=== PATIENT | male | born 1935 | race Caucasian/White ===

== ENCOUNTER 2017-10-22 19:30 | Outpatient (CLI) | payer MEDICARE | END 2017-10-22 19:31 | disposition home or self-care (01) | LOC: SLEEPLAB 19:30 | PROVIDERS: ATTEND Family Medicine | DX: G47.33 Obstructive sleep apnea (adult) (pediatric) (principal); I10 Essential (primary) hypertension; R06.83 Snoring; I25.10 Atherosclerotic heart disease of native coronary artery without angina pectoris; E11.9 Type 2 diabetes mellitus without complications | CPT/HCPCS: 95810 ==

== ENCOUNTER 2017-12-20 09:28 | Outpatient (CLI) | payer MEDICARE ==
--- NOTE | 2017-12-20 12:17 | MRI ---
MRI RIGHT SHOULDER WITHOUT CONTRAST: Date: 12/20/17 HISTORY: M25.511. Rotator cuff tear. Chronic pain. COMPARISON: None. FINDINGS: Biceps Tendon: Moderate extraarticular biceps tenosynovitis. Extensive intraarticular tendinosis, as well as interst itial delamination tearing. Glenoid Labrum: Posterior superior labral tear is present. There is also abnormal signal throughout the superior labr um indicating chronic tearing. No normal superior labral tissue is appreciated. Rotator Cuff: There is a full thickness rupture of the anterior 15 mm supraspinatus tendon from the footplate with fibers retracted to the medial humeral head. There is some scar in situ. There is extensive interstit ial tearing and undersurface fraying of the posterior fibers of the supraspinatus tendon. Mild tendin osis infraspinatus tendon. Extensive deep fiber tendinosis and partial tearing of the subscapularis. Soft Tissues: Moderate subacromial/subdeltoid bursal effusion. There is abnormal loss of normal subcoracoid fat. Th ere is extensive fibrosis at the rotator interval. Thickening of the axillary pouch and inferior glenohumeral ligament. Muscles: No significant atrophy. Bones: Mild degenerative disease at the acromioclavicular joint. IMPRESSION: 1. Full thickness tear of the anterior 1/2 of the supraspinatus tendon from the footplate retracted to medial humeral head. No significant muscle atrophy. The torn fibers are severely tendinotic and fr ayed. 2. Extensive interstitial tearing and undersurface fraying of the infraspinatus tendon, as well as o f the remaining fibers of the supraspinatus tendon. 3. Maceration of the superior labrum with no normal superior labral fibers remaining. 4. Loss of normal subcoracoid fat, as well as edema at the rotator interval, and thickening of axill lynn pouch and inferior glenohumeral ligament can be seen with capsulitis in the correct clinical sett ing. 5. Moderate tenosynovial fluid within the biceps tendon sheath. 6. Small bodies within the subscapularis bursa. POS: [facility]
== END 2017-12-20 09:29 | disposition home or self-care (01) ==
LOC: SCSMRI 09:28
PROVIDERS: ATTEND Orthopaedic Surgery Hand Surgery
DX: M75.101 Unspecified rotator cuff tear or rupture of right shoulder, not specified as traumatic (principal); M19.011 Primary osteoarthritis, right shoulder

== ENCOUNTER 2018-01-23 10:39 | Outpatient (CLI) | payer MEDICARE ==
[2018-01-23 12:47] LABS: %Lymphocytes 39.2 % (21.0-51.0); %Neutrophils 47.9 % (42.0-75.0); Mean Corpuscular HGB CONC 33.6 g/dL (32.0-36.0); Mean Corpuscular Hemoglobin 32.7 pg (27.0-31.0); Mean Corpuscular Volume 97.1 fL (78.0-98.0); Mean Platelet Volume 8.9 fL (7.4-10.4); Platelet Count 84 thou/uL (130-400); RBC Distribution Width 11.6 % (11.5-14.5); Red Blood Cell (RBC) Count 4.28 mill/uL (4.70-6.10); White Blood Cell (WBC) Count 4.8 thou/uL (4.8-10.8)
[2018-01-23 12:48] LABS: #Basophils 0.1 thou/uL (0.0-0.2); #Eosinphils 0.2 thou/uL (0.0-0.7); #Lymphocytes 1.9 thou/uL (1.20-3.40); #Monocytes 0.4 thou/uL (0.11-0.59); #Neutrophils 2.3 thou/uL (1.40-6.50); %Basophils 1.1 % (0.0-1.0); %Eosinophils 3.8 % (0.0-10.0); %Monocytes 7.9 % (0.0-10.0)
[2018-01-23 13:05] LABS: Anion Gap 8 mmol/L (10-20); BUN (Urea Nitrogen) 23 mg/dL (8.4-25.7); Calc. Creatinine Clearance 0 mL/min (70-130); Calcium 9.2 mg/dL (7.8-10.44); Carbon Dioxide 28 mmol/L (23-31); Chloride 107 mmol/L (98-107); Estimated GFR-MDRD 68; Glucose 79 mg/dL (83-110); Potassium 4.5 mmol/L (3.5-5.1); Sodium 138 mmol/L (136-145)
== END 2018-01-23 10:40 | disposition home or self-care (01) ==
LOC: LABBT 10:39
PROVIDERS: ATTEND Orthopaedic Surgery
DX: Z01.818 Encounter for other preprocedural examination (principal); M75.101 Unspecified rotator cuff tear or rupture of right shoulder, not specified as traumatic; M65.321 Trigger finger, right index finger
CPT/HCPCS: 80048; 85025

== ENCOUNTER 2018-01-24 05:50 | Day surgery (SDC) | payer MEDICARE ==
[2018-01-24] MEDS ORDERED: Fentanyl 100 MCG/2 ML VIAL ONE ×2 (06:20→06:59)
[2018-01-24] MEDS ORDERED: Bupivacaine HCl 0.25%/Epi 0.0005/PF 10 ML VIAL FS ONE (06:27)
[2018-01-24] MEDS ORDERED: CEFAZOLIN/Water 2 GM/20 ML SYRINGE ONE (06:42)
[2018-01-24] MEDS ORDERED: Midazolam HCl 2 mg/2 ml Vial ONE (06:59)
[2018-01-24] MEDS ORDERED: Ketorolac Tromethamine 30 MG/ML VIAL IVP PRN (07:27)
[2018-01-24] MEDS ORDERED: Promethazine HCl 25 MG/ML VIAL IM PRN (07:27)
[2018-01-24] MEDS ORDERED: Ondansetron HCl/PF 4 MG/2 ML Vial IVP PRN (07:27)
[2018-01-24] MEDS ORDERED: traMADol HCl 50 MG TAB PO PRN ×2 (07:27)
[2018-01-24] MEDS ORDERED: Zolpidem Tartrate 5 MG TAB PO PRN (07:27)
[2018-01-24] MEDS ORDERED: Ropivacaine HCl/PF 1,100 MG in Sodium Chloride 0.9% 440 ML NERVE BLCK SCH (07:27)
[2018-01-24] MEDS ORDERED: Fentanyl 100 MCG/2 ML VIAL IV PRN (07:28)
[2018-01-24] MEDS ORDERED: HYDROcodone/Acetaminophen 7.5/325 mg Tablet PO PRN ×2 (07:30)
[2018-01-24] MEDS ORDERED: Bupivacaine/Epinephrine 0.25% 30 ML VIAL ONE (08:02)
--- NOTE | 2018-01-24 11:34 | OP ---
DATE OF PROCEDURE: 01/24/2018 PREOPERATIVE DIAGNOSES: 1. Right rotator cuff repair. 2. Right index finger trigger finger. POSTOPERATIVE DIAGNOSES: 1. Right rotator cuff tear. 2. Subacromial impingement. 3. Right index finger trigger finger. PROCEDURE PERFORMED: 1. Rotator cuff repair Double row transosseous equivalent. 2. Subacromial decompression. 3. Right index finger trigger finger release. STAFF: Daniel Aaron M.D. REAL ESTATE TEACHER: None. ANESTHESIA: Ugarte. The patient received general endotracheal intubation interscalene block. ESTIMATED BLOOD LOSS: 30 mL. TOURNIQUET TIME: 8 minutes at 200 mmHg for the trigger finger release. ANTIBIOTICS: Ancef 2 grams. IMPLANTS: Two 5/5 corkscrews, x2 4.75 SwiveLocks for transosseous equivalent. COMPLICATIONS: None. HISTORY OF PRESENT ILLNESS: Mr. Sidhu is a pleasant 82-year-old male who presented to me, referred by Dr. Juarez. 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 He has pain. The patient is diabetic. History of open heart surgery. The patient had pain that was 5/10 in the shoulder, pain with activities. The patient had a full thickness rotator cuff repair and had a trigger finger. I discussed with him the risks and benefits of right rotator cuff repair and trigger finger release and indicated procedures for his right shoulder and hand. I discussed the risks and benefits of surgery to include pain, scar, bleeding, infection, damage to vital structures, decreased range of motion or strength, continued pain despite surgical intervention, loss of life or limb. The patient understood these risks and benefits and elected to proceed. PROCEDURE IN DETAIL: Time out was performed designating the patient's right upper extremity as the operative site based on site, consents, markings. After completion of timeout, the patient's right upper extremity was prepped and draped in sterile fashion. He was placed in a beach chair position with his bony prominences well padded. The patient had a posterior working portal and anterior working portal placed, visualize intraarticularly within the shoulder, saw the full thickness defect. There was a grade 2 humeral defect that I noticed, but no full thickness glenoid defects. The biceps was a little degenerative, but otherwise looked good throughout its course. The subscap had a little leading edge tear. I saw the full thickness tear which was at the anterior footprint of the patient's supraspinatus. I cleaned up inside the joint, moved subacromially. Removed the bursa. There was a small hook after taking down the patient's leading edge of the CA therefore I smoothed that out, I did not take more than about 2-3 mm of bone. I smoothed out the bone, smoothed out the subacromial. I decompressed all the bursa and I debrided the rotator cuff, the footprint for the rotator cuff repair. I drilled holes, placed 2 anchors near the intraarticular margin, passed 8 sutures through. There was an intrasubstance tear within the rotator cuff tear also which I had to opacify to help to compress that together, passed 8 stitches through, sewed this together and placed 2 double row PushLocks to help with a double row transosseous equivalent. I then cut my sutures, I washed, closed with 3-0 nylon. I then moved to my hand, placed a forearm tourniquet on, left it up for 8 minutes. I came down through the skin bluntly, I dissected down to the patient's A1 bebo of the index finger and made sure the neurovascular bundle was out of the way. I used a knife to cut in place ensure that I could pull the tendon up through the wound, was able to move without any difficulty. I had my complete release. I then washed and closed the tendon with some two horizontal mattress sutures 4-0 nylon. I let the tourniquet down after 8 minutes. The patient will be admitted to home. He will be in a hand splint as well as a shoulder sling. Begin elbow, wrist, and hand motion. He will follow up with me in 2 weeks. DOUG
[2018-01-24] MEDS ORDERED: Ropivacaine 0.5% HCl/PF (150 MG/30 ML VIAL) ONE (11:56)
[2018-01-24] MEDS ORDERED: Ropivacaine 0.2% HCl/PF (40 MG/20 ML VIAL) ONE (11:56)
[2018-01-24] MEDS ORDERED: HYDROcodone/Acetaminophen 5/325 mg Tablet ONE (12:04)
[2018-01-24] MEDS ORDERED: PHENYLEPHRINE-NS 100 MCG/ML 10 ML SYRINGE ONE (12:51)
[2018-01-24] MEDS ORDERED: PROPOFOL 200 MG/20 ML VIAL ONE (12:51)
[2018-01-24] MEDS ORDERED: Glycopyrrolate 0.2 MG/ML 5 ML SYRINGE ONE (12:51)
[2018-01-24] MEDS ORDERED: Ondansetron HCl/PF 4 MG/2 ML Vial ONE (12:51)
[2018-01-24] MEDS ORDERED: Lidocaine 1% PF 5 ML VIAL ONE (12:51)
[2018-01-24] MEDS ORDERED: ePHEDrine/0.9% NaCl/PF SYRINGE 50 mg/10 ml ONE (12:51)
== END 2018-01-24 12:00 | disposition home or self-care (01) ==
LOC: SDC 05:50
PROVIDERS: ATTEND Orthopaedic Surgery
PROC: 0LN70ZZ Release Right Hand Tendon, Open Approach (ICD-10-PCS; principal; 2018-01-24)
PROC: 0LM14ZZ Reattachment of Right Shoulder Tendon, Percutaneous Endoscopic Approach (ICD-10-PCS; 2018-01-24)
PROC: 0RHJ44Z Insertion of Internal Fixation Device into Right Shoulder Joint, Percutaneous Endoscopic Approach (ICD-10-PCS; 2018-01-24)
PROC: 0RNJ4ZZ Release Right Shoulder Joint, Percutaneous Endoscopic Approach (ICD-10-PCS; 2018-01-24)
DX: M75.121 Complete rotator cuff tear or rupture of right shoulder, not specified as traumatic (principal); M75.41 Impingement syndrome of right shoulder; M65.321 Trigger finger, right index finger; M19.011 Primary osteoarthritis, right shoulder; E11.9 Type 2 diabetes mellitus without complications; I51.9 Heart disease, unspecified; Z87.891 Personal history of nicotine dependence; Z79.82 Long term (current) use of aspirin; Z79.84 Long term (current) use of oral hypoglycemic drugs; Z79.899 Other long term (current) drug therapy
CPT/HCPCS: 29826; 29827; 26055; C1713 ×2; J2001; J2250; J2405; J2704; J2795; J3010; J7050

== ENCOUNTER 2018-01-27 17:54 | Observation (INO) | payer MEDICARE ==
[2018-01-27] MEDS ORDERED: Benzocaine 20% Spray 60 ML CAN ONE (18:24)
[2018-01-27] MEDS ORDERED: Lidocaine 1% 20 ML MDV ONE (18:24)
[2018-01-27] MEDS ORDERED: Lidocaine 4% Topical Sol 50 ML BOT ONE (18:34)
[2018-01-27 19:31] LABS: PTT 26.2 SEC (22.9-36.1); Prothrombin Time 13.5 SEC (12.0-14.7)
[2018-01-27 19:38] LABS: #Lymphocytes 1.4 thou/uL (1.20-3.40); #Monocytes 0.9 thou/uL (0.11-0.59); #Neutrophils 8.1 thou/uL (1.40-6.50); %Basophils 0.4 % (0.0-1.0); %Eosinophils 0.4 % (0.0-10.0); %Lymphocytes 12.9 % (21.0-51.0); %Monocytes 8.7 % (0.0-10.0); %Neutrophils 77.5 % (42.0-75.0); Hemoglobin 13.7 g/dL (14.0-18.0); Large Platelets SLIGHT; MDiff Complete? YES; Mean Corpuscular HGB CONC 35.2 g/dL (32.0-36.0); Mean Corpuscular Volume 91.1 fL (78.0-98.0); Mean Platelet Volume 9.9 fL (7.4-10.4); PLT Morphology Comment Appears Decreased; Platelet Count 92 thou/uL (130-400); RBC Distribution Width 11.2 % (11.5-14.5); Red Blood Cell (RBC) Count 4.28 mill/uL (4.70-6.10); White Blood Cell (WBC) Count 10.4 thou/uL (4.8-10.8)
--- NOTE | 2018-01-27 19:39 | RAD ---
ABDOMINAL SERIES WITH UPRIGHT CHEST AND TWO VIEW ABDOMEN: 01/27/18 HISTORY: Vomiting. Abdominal pain. Upright chest shows linear atelectasis in the left mid lung. The heart size is upper normal with post op sternotomy change. No evidence of infiltrate, effusion, or pneumothorax. No evidence of free intraperitoneal air. Bowel gas pattern unremarkable. There is scattered stool and gas throughout the colon. IMPRESSION: Unremarkable bowel gas pattern. POS: [facility]
[2018-01-27 19:42] LABS: ALT (SGPT) 17 U/L (8-55); AST (SGOT) 29 U/L (5-34); Albumin 3.8 g/dL (3.4-4.8); Alkaline Phosphatase 95 U/L (40-150); Anion Gap 16 mmol/L (10-20); BUN (Urea Nitrogen) 12 mg/dL (8.4-25.7); Calc. Creatinine Clearance 0 mL/min (70-130); Carbon Dioxide 24 mmol/L (23-31); Chloride 98 mmol/L (98-107); Estimated GFR-MDRD 90; Globulin 3.2 g/dL (2.4-3.5); Glucose 153 mg/dL (83-110); Lipase 4 U/L (8-78); Potassium 3.8 mmol/L (3.5-5.1); Sodium 134 mmol/L (136-145)
[2018-01-27] MEDS ORDERED: Pantoprazole 40 MG VIAL ONE (19:51)
[2018-01-27] MEDS ORDERED: Ondansetron HCl/PF 4 MG/2 ML Vial ONE (19:51)
[2018-01-27] MEDS ORDERED: Ondansetron HCl/PF 4 MG/2 ML Vial SLOW IVP PRN (21:40)
[2018-01-27] MEDS ORDERED: Dextrose 50% Abboject 50 ML SYRINGE SLOW IVP PRN (22:32)
[2018-01-27] MEDS ORDERED: Dextrose 5% in Water 1,000 ML IV PRN (22:32)
[2018-01-27] MEDS ORDERED: Insulin Regular 300 UNITS/3 ML VIAL SC PRN (22:32)
[2018-01-27] MEDS ORDERED: Promethazine 25 MG TAB PO PRN (22:33)
[2018-01-27] MEDS ORDERED: Ondansetron ODT 4 MG TAB PO PRN (22:33)
[2018-01-27] MEDS ORDERED: Mag-Al 1200 mg/1200 mg/30 ML UDCUP PO PRN (22:33)
[2018-01-27] MEDS ORDERED: traMADol HCl 50 MG TAB PO PRN (22:33)
[2018-01-27] MEDS ORDERED: Fleet Enema 133 ML BOT PR PRN (22:33)
[2018-01-27] MEDS ORDERED: Magnesium Citrate 300 ML BOT PO SCH (22:45)
[2018-01-28] MEDS: Sodium Chloride 0.9% 1,000 ML IV SCH ×3 (00:07→15:29)
[2018-01-28 00:41] VITALS: BMI 28.8
[2018-01-28] MEDS ORDERED: chlorproMAZINE HCl 25 MG in Sodium Chloride 0.9% 50 ML IVPB PRN (02:06)
[2018-01-28] MEDS ORDERED: Lidocaine 2% Viscous Solution 20 ML, Aluminum & Magnesium Hydroxide 30 ML, Donnatal Eli... SSW SCH (03:00)
[2018-01-28 05:07] LABS: #Eosinphils 0.1 thou/uL (0.0-0.7); #Lymphocytes 1.2 thou/uL (1.20-3.40); #Monocytes 0.7 thou/uL (0.11-0.59); #Neutrophils 5.8 thou/uL (1.40-6.50); %Basophils 0.1 % (0.0-1.0); %Eosinophils 0.6 % (0.0-10.0); %Lymphocytes 15.7 % (21.0-51.0); %Monocytes 8.6 % (0.0-10.0); Hemoglobin 11.5 g/dL (14.0-18.0); Mean Corpuscular HGB CONC 34.5 g/dL (32.0-36.0); Mean Corpuscular Hemoglobin 33.9 pg (27.0-31.0); Mean Corpuscular Volume 98.4 fL (78.0-98.0); Mean Platelet Volume 9.2 fL (7.4-10.4); Platelet Count 81 thou/uL (130-400); RBC Distribution Width 11.5 % (11.5-14.5); White Blood Cell (WBC) Count 7.8 thou/uL (4.8-10.8)
[2018-01-28 05:27] LABS: ALT (SGPT) 13 U/L (8-55); AST (SGOT) 24 U/L (5-34); Albumin 2.9 g/dL (3.4-4.8); Alkaline Phosphatase 80 U/L (40-150); Anion Gap 13 mmol/L (10-20); BUN (Urea Nitrogen) 20 mg/dL (8.4-25.7); Bilirubin, Total 0.7 mg/dL (0.2-1.2); Calc. Creatinine Clearance 96 mL/min (70-130); Calcium 8.5 mg/dL (7.8-10.44); Carbon Dioxide 20 mmol/L (23-31); Chloride 102 mmol/L (98-107); Estimated GFR-MDRD Greater than 90; Globulin 2.4 g/dL (2.4-3.5); Glucose 221 mg/dL (83-110); Potassium 4.1 mmol/L (3.5-5.1); Protein, Total 5.3 g/dL (5.8-8.1); Sodium 131 mmol/L (136-145)
[2018-01-28] MEDS: Pantoprazole 40 MG VIAL IVP SCH (08:44)
[2018-01-28] MEDS: Metoprolol Tartrate 25 MG TAB PO SCH ×2 (08:45→20:07)
[2018-01-28] MEDS: Amlodipine 5 mg/Benazepril 20 mg CAP PO SCH (08:45)
[2018-01-28] MEDS: Atorvastatin Calcium 10 MG TAB PO SCH (08:45)
[2018-01-28] MEDS: Senokot S 8.6-50 MG TAB PO SCH ×2 (08:45→20:07)
[2018-01-28] MEDS ORDERED: Prevnar 13-Val Conj/PF 0.5 ML SYRINGE IM ONE (09:00)
[2018-01-28] MEDS ORDERED: LIRAGLUTIDE 18 UNIT SC SCH (09:00)
[2018-01-28] MEDS: Magnesium Citrate 300 ML BOT PO SCH ×2 (12:27→15:29)
[2018-01-28 14:08] LABS: #Eosinphils 0.1 thou/uL (0.0-0.7); #Lymphocytes 1.5 thou/uL (1.20-3.40); #Monocytes 0.7 thou/uL (0.11-0.59); #Neutrophils 4.9 thou/uL (1.40-6.50); %Basophils 0.2 % (0.0-1.0); %Eosinophils 1.8 % (0.0-10.0); %Lymphocytes 20.4 % (21.0-51.0); %Monocytes 9.4 % (0.0-10.0); %Neutrophils 68.2 % (42.0-75.0); Hemoglobin 12.6 g/dL (14.0-18.0); Mean Corpuscular HGB CONC 34.9 g/dL (32.0-36.0); Mean Corpuscular Hemoglobin 33.7 pg (27.0-31.0); Mean Corpuscular Volume 96.8 fL (78.0-98.0); Mean Platelet Volume 8.4 fL (7.4-10.4); Platelet Count 102 thou/uL (130-400); RBC Distribution Width 11.4 % (11.5-14.5); Red Blood Cell (RBC) Count 3.75 mill/uL (4.70-6.10); White Blood Cell (WBC) Count 7.1 thou/uL (4.8-10.8)
--- NOTE | 2018-01-28 18:18 | CON ---
DATE OF CONSULTATION: 01/25/2018 HISTORY OF PRESENT ILLNESS: The patient is an 82-year-old male, who recently underwent a r ight shoulder surgery. He was doing well until the day prior to admission when he developed some hic cups, and then had a large amount of coffee-ground emesis. He denies prior episodes of upper GI blee ding. He denies prior history of peptic ulcers. He does take Advil and ibuprofen maybe 6-8 tablets per week. He does use Tylenol as well. He denies any weight loss. He denies any abdominal pain. PAST MEDICAL HISTORY: Significant for diabetes mellitus, hyperlipidemia, hypertension, chronic back pain. PAST MEDICAL HISTORY: Herniorrhaphy, appendectomy, coronary artery bypass, multiple orthopedic surge stephen. ALLERGIES: No known allergies. MEDICATIONS: Medications on admission include aspirin 81 mg p.o. daily, atorvastatin 40 mg p.o. q.p. m., glimepiride 4 mg p.o. b.i.d., metoprolol 25 mg p.o. b.i.d., amlodipine and benazepril 5/20 one p. o. daily, Januvia 100 mg p.o. daily, Victoza Pen 3 mL every day, tamsulosin 0.4 mg p.o. daily, omepra zole 20 mg p.o. daily. SOCIAL HISTORY: He has a glass of wine with dinner. Does not smoke. FAMILY HISTORY: Negative for GI or liver disease. REVIEW OF SYSTEMS: Constitutional: No fever or chills. No weight loss. Eyes: No blurred vision o r double vision. ENT: No sore throat or earaches. Cardiovascular: No chest pain or palpitation. Pulmonary: No shortness of breath, cough, or wheeze. Gastrointestinal: See above. Genitourinary: No hematuria or dysuria. Musculoskeletal: No joint pain or muscle weakness. Skin: No rashes. Ne urologic: No numbness or seizure activity. PHYSICAL EXAMINATION: GENERAL: Shows an elderly white male in no acute distress. VITAL SIGNS: Temperature 98.6, pulse is 67, respiratory rate 18, blood pressure 152/68. HEENT: Unremarkable. NECK: Supple. CHEST: Clear. CARDIOVASCULAR: Regular rate and rhythm. ABDOMEN: Soft and nontender without organomegaly or masses. LABORATORY DATA: Shows admission hemoglobin of 13.7, repeat was 11.5; white blood cell count 7.8; pl atelet count of 81,000. PT is 13.5 with an INR of 1.0. Chemistries showed sodium 131, CO2 of 20, gl ucose 221, albumin 2.9. ASSESSMENT: 1. Coffee-ground emesis. 2. Recent right shoulder surgery - the patient takes chronic NSAIDs. 3. Anemia secondary to gastrointestinal blood loss. 4. Thrombocytopenia, may be consumption. 5. Diabetes mellitus. 6. Coronary artery disease. RECOMMENDATIONS: 1. EGD. 2. PPI. 3. Serial H&H.
--- NOTE | 2018-01-28 18:33 | HP ---
PRIMARY CARE PHYSICIAN: Dr. Emery Gage. CHIEF COMPLAINT: Intractable nausea and vomiting. HISTORY OF PRESENT ILLNESS: The patient underwent right rotator cuff surgery with simultaneous right hand trigger finger repair under Dr. Aaron. The patient was discharged from same day surgery on Tuesday. On evening, he presented to [facility] in [place] emergency room with urinary obstruction. Warren catheter was placed and the patient was restarted on tamsulosin for his history of benign prostatic hyperplasia. He had stopped his tamsulosin some time ago and was able to successfully Warren catheterization following initiation of tamsulosin; however, following that prehospital evaluation, the patient started having intractable nausea and vomiting, not had a bowel movement and since the surgery in almost a week, started having abdomen pain, most predominantly a suprapubic; however, no fevers or chills reported. No incision site drainage, redness or warmth reported to shoulder and hand. The patient states his blood sugars have been controlled regarding his diabetes; however, more concerning per emergency room report is positive coffee ground emesis. It was an occult blood negative however. When speaking with the patient, he did have a decent quantity of Pepto-Bismol for his indigestion symptoms prior to presenting to the emergency department having coffee ground emesis. REVIEW OF SYSTEMS: No fevers, no chills. Positive fatigue. Positive for joint pain. No joint swelling, no incision line exudates. No cough, no congestion. No chest pain, no palpitation, no shortness of breath. Positive abdomen pain, predominantly suprapubic. Positive urinary retention symptoms. No dysuria, no hematuria reported. Positive nausea and vomiting including coffee ground emesis. Lower extremities without cyanosis or edema reported. No polydipsia, polyuria reported. PAST MEDICAL HISTORY: Hypertension, hyperlipidemia, diabetes type 2, coronary artery disease, neuropathy of foot, trigger finger of right hand, rotator cuff tear of right shoulder, BPH with lower urinary tract obstruction. HOME MEDICATIONS: Include Docusate sodium 1 tab daily, glimepiride 4 mg daily, Prandin 2 mg twice daily, Victoza 1.8 mg daily, metoprolol tartrate 25 mg twice daily, atorvastatin 10 mg once daily, amlodipine/benazepril 5/20 mg daily, Pioglitazone 30 mg daily, omeprazole 20 mg daily, baby aspirin 81 mg daily, tamsulosin, not currently taking, but was prescribed 0.4 mg daily, Januvia 100 mg daily. PAST SURGICAL HISTORY: Includes right knee, unspecified, back surgery, heart bypass surgery, lung resection, tonsillectomy, hernia repair, appendectomy, right ganglion cyst removal. SOCIAL HISTORY: The patient is a former smoker, greater than 10 year history. Current coffee drinker. He is . Son, present at bedside. Family support. LABORATORY WORK AND IMAGING: White blood cell count of 10.4, hemoglobin of 13.7 , platelet count of 92. This is actually up from his preoperative platelet count. INR 1.0. Sodium 134, potassium 3.8, BUN of 12, creatinine 0.82, glucose of 153, calcium of 10.0, AST of 29, ALT 17, albumin of 3.8, lipase of 4. Lactic acid of 1.6. Repeat CBC this a.m., hemoglobin 11.5 following IV rehydration, platelet count of 81, white blood cell 7.8. Review of acute abdomen series, nonspecific bowel gas pattern, no obstruction. PHYSICAL EXAMINATION: VITAL SIGNS: On arrival to floor, temperature of 98.5, respiratory rate of 16, oxygen saturation of 94% on room air, blood pressure 124/68. GENERAL: The patient is alert and oriented, no acute distress. HEENT: Normocephalic, atraumatic. Extraocular movements are intact. Sclerae are clear. Oral mucosa is moist, following IV rehydration. No coffee ground emesis found in mouth. NECK: Supple. HEART: Regular rate and rhythm. No murmurs auscultated. LUNGS: Clear to auscultation bilaterally. No rubs or wheezes. ABDOMEN: Tender over suprapubic area without rebound or guarding. EXTREMITIES: Negative bed shakes. Negative leg lifts. No cyanosis or edema in lower extremities, 2+ dorsalis pedis pulses bilaterally. NEUROLOGIC: The patient is alert and oriented x3, no focal deficits. Speech is normal. ASSESSMENT AND PLAN: Intractable nausea and vomiting, constipation, status post right rotator cuff repair and trigger finger repair of right hand, gastroesophageal reflux disease, benign prostatic hyperplasia with lower urinary obstructive symptoms, coffee ground emesis, type 2 diabetes. The patient has been rehydrated with IV fluids for likely cause of drop in hemoglobin. No apparent bleeding at this point in time; however, we will continue to monitor with repeat CBC, consulting Gastroenterology for opinion for any need for EGD. Upon speaking with the patient and son, black emesis may be secondary to Pepto-Bismol. Vital signs currently stable, sliding scale insulin, regarding blood sugars. We will hold patient's Victoza regarding a gastric emptying slowing. The patient has already attempted on glycerin suppository, Fleets enema, mag citrate. He has failed magnesium citrate as he threw it up and had hiccups acutely was given a GI cocktail and in addition to Thorazine last night with resolution of hiccups and dyspepsia symptoms. Repeating magnesium citrate until GI can assess the patient for further recommendations. Does not appear to be obstructed this point in time. The patient is still able to urinate at bedside commode with tamsulosin. I have p.r.n. bladder scan order for nursing staff. If patient starts to have urinary retention symptoms or suprapubic pain that worsens, we will leave the patient n.p.o. except meds at this point in time and unless Gastroenterology does not want to do any procedures, then we will titrate the patient's diet once he has a bowel movement. Regarding pain control, tramadol is currently ordered. IV morphine from the emergency department was established. We will try to use narcotics sparingly which I slow down, ordering Senokot S to help stimulate gut. MTDD
[2018-01-28] MEDS ORDERED: Tamsulosin HCl 0.4 MG CAP PO SCH (21:00)
[2018-01-29] MEDS: Sodium Chloride 0.9% 1,000 ML IV SCH ×3 (01:35→14:12)
[2018-01-29 04:42] LABS: #Eosinphils 0.2 thou/uL (0.0-0.7); #Lymphocytes 1.3 thou/uL (1.20-3.40); #Monocytes 0.5 thou/uL (0.11-0.59); #Neutrophils 3.7 thou/uL (1.40-6.50); %Basophils 0.4 % (0.0-1.0); %Eosinophils 2.7 % (0.0-10.0); %Lymphocytes 23.4 % (21.0-51.0); %Monocytes 8.8 % (0.0-10.0); %Neutrophils 64.8 % (42.0-75.0); Hemoglobin 10.9 g/dL (14.0-18.0); Mean Corpuscular HGB CONC 34.2 g/dL (32.0-36.0); Mean Corpuscular Hemoglobin 33.3 pg (27.0-31.0); Mean Corpuscular Volume 97.5 fL (78.0-98.0); Mean Platelet Volume 8.3 fL (7.4-10.4); Platelet Count 94 thou/uL (130-400); RBC Distribution Width 11.6 % (11.5-14.5); Red Blood Cell (RBC) Count 3.27 mill/uL (4.70-6.10); White Blood Cell (WBC) Count 5.7 thou/uL (4.8-10.8)
[2018-01-29 04:59] LABS: ALT (SGPT) 12 U/L (8-55); AST (SGOT) 23 U/L (5-34); Alkaline Phosphatase 73 U/L (40-150); Anion Gap 9 mmol/L (10-20); BUN (Urea Nitrogen) 20 mg/dL (8.4-25.7); Bilirubin, Total 0.5 mg/dL (0.2-1.2); Calc. Creatinine Clearance 84 mL/min (70-130); Carbon Dioxide 24 mmol/L (23-31); Chloride 108 mmol/L (98-107); Estimated GFR-MDRD 81; Globulin 2.2 g/dL (2.4-3.5); Glucose 126 mg/dL (83-110); Potassium 3.7 mmol/L (3.5-5.1); Protein, Total 5.2 g/dL (5.8-8.1); Sodium 137 mmol/L (136-145)
[2018-01-29] MEDS ORDERED: Fentanyl 100 MCG/2 ML VIAL ONE (09:31)
[2018-01-29] MEDS ORDERED: Promethazine HCl 25 MG/ML VIAL IM PRN (09:38)
[2018-01-29] MEDS ORDERED: Ondansetron HCl/PF 4 MG/2 ML Vial IVP PRN (09:38)
[2018-01-29] MEDS ORDERED: Promethazine HCl 25 MG/ML VIAL SLOW IVP PRN (09:38)
[2018-01-29] MEDS: Metoprolol Tartrate 25 MG TAB PO SCH (10:02)
[2018-01-29] MEDS: Atorvastatin Calcium 10 MG TAB PO SCH (10:02)
[2018-01-29] MEDS: Amlodipine 5 mg/Benazepril 20 mg CAP PO SCH (10:02)
[2018-01-29] MEDS: Pantoprazole 40 MG VIAL IVP SCH (10:03)
[2018-01-29] MEDS: Senokot S 8.6-50 MG TAB PO SCH (10:03)
--- NOTE | 2018-01-29 10:21 | OP ---
DATE OF PROCEDURE: 01/29/2018 PREOPERATIVE DIAGNOSIS: Hematemesis. DESCRIPTION OF PROCEDURE: After informed consent was obtained, the patient placed in left lateral de cubitus position. Anesthesia was administered per the Anesthesia Department. Forward-viewing endosc ope was inserted in esophagus under direct visualization with ease and passed to the second portion o f the duodenum with ease. Second portion of the duodenum and duodenal bulb were normal. The pylorus , antrum, body, fundus, and cardia were normal. No blood was seen in the upper GI tract. Retroflexi on in the stomach showed a large hiatal hernia with Solitario's erosions. No active bleeding was seen. The esophagus showed an irregular squamocolumnar junction and biopsies were taken. No erosive esop hagitis was seen. ASSESSMENT: 1. Irregular squamocolumnar junction - status post biopsy. 2. Large hiatal hernia with Solitario's erosions. 3. Otherwise normal esophagogastroduodenoscopy - no blood seen in the upper gastrointestinal tract. RECOMMENDATIONS: 1. Continue PPI long-term. 2. Stable from GI standpoint for discharge. 3. Resume diet.
[2018-01-29 12:40] VITALS: BP 145/68; TEMP 97.8
[2018-01-29] MEDS ORDERED: PROPOFOL 200 MG/20 ML VIAL ONE (15:58)
[2018-01-29] MEDS ORDERED: Lidocaine 1% PF 5 ML VIAL ONE (15:58)
--- NOTE | 2018-01-29 22:27 | DIS ---
DATE OF ADMISSION: 01/27/2018 DATE OF DISCHARGE: 01/29/2018 CHIEF COMPLAINT: Nausea, vomiting, constipation. PRESENTING HPI: Patient is status post right rotator cuff repair on outpatient surgery on Tuesday, h ad urinary retention seen in the [place] emergency room on . Following in and out catheteri zation, patient was restarted back on tamsulosin, which he had stopped prior followed by Dr[facility] on an outpatient basis. Instructed to follow up with her; however, had intractable nausea and vo miting including coffee-ground consistency despite being compliant with 20 mg of proton pump inhibito r daily, was taking ibuprofen for pain relief of right shoulder pain prior. Does have a history of g astroesophageal reflux disease, stable blood sugars regarding the diabetes. Throughout his hospital stay, he no longer had obstructive symptoms on tamsulosin regarding his urination. He had EGD perfor med by Dr. Joseph, which showed erosion of the , which was biopsied; however, no active ulceration or bleeding. Per Gastroenterology, the patient was appropriate for discharge. He was discharged ho nd following having 3 good bowel movements following stool softeners and laxatives both from above an d below, was instructed to take sennosides with docusate sodium every day that he took his narcotics. he believes was a [place] sent in postoperatively by Orthopedic Surgery; however, could be mistaken a nd could also have a total Tylenol #3, slight poor historian regarding this. They verbalized underst anding about bowel regimen while on narcotics, ambulated post-EGD and also tolerated lunch prior to d ischarge. The patient felt comfortable with social support of family who are in town of [facility]. We will have him follow up acutely with Dr. Emery Gage on an outpatient basis. CONSULTATIONS: Dr. Joseph. DISCHARGE DIET: Diabetic. DISCHARGE CONDITION: Good. PROCEDURES PERFORMED: Acute abdomen series and esophagogastroduodenoscopy. No obstruction was found on acute abdomen series. DISCHARGE MEDICATIONS: Included home amlodipine/ benazepril 5/20 mg, Lipitor 10 mg, docusate sodium 100 mg daily, Amaryl 4 mg twice daily, Victoza 1.8 mg daily, metoprolol 25 mg b.i.d., increased nany n pump inhibitor to Protonix 40 mg daily from omeprazole 20 mg, continuing Actos 30 mg daily, Prandin 2 mg p.o. b.i.d., sennosides 8.6 mg b.i.d., Januvia 100 mg daily, Flomax 0.4 mg at bedtime.
== END 2018-01-29 14:05 | disposition home or self-care (01) ==
LOC: SCSER 17:54 → 2SW 20:10 → T4-A 21:30
PROVIDERS: ADMIT Family Medicine; ATTEND Internal Medicine Gastroenterology
PROC: 0DB58ZX Excision of Esophagus, Via Natural or Artificial Opening Endoscopic, Diagnostic (ICD-10-PCS; principal; 2018-01-29)
DX: K20.9 Esophagitis, unspecified (principal); K44.9 Diaphragmatic hernia without obstruction or gangrene; I10 Essential (primary) hypertension; E78.5 Hyperlipidemia, unspecified; E11.9 Type 2 diabetes mellitus without complications; I25.10 Atherosclerotic heart disease of native coronary artery without angina pectoris; D69.6 Thrombocytopenia, unspecified; D50.0 Iron deficiency anemia secondary to blood loss (chronic); Z79.82 Long term (current) use of aspirin; Z79.84 Long term (current) use of oral hypoglycemic drugs; Z79.899 Other long term (current) drug therapy
CPT/HCPCS: 43239; 74022; 80053 ×3; 82271; 82962 ×2; 83605; 83690; 85025 ×4; 85610; 85730; 86850; 86900; 86901; 88305; 88312; 88313; 96361 ×3; 96365; 96375 ×2; 96376 ×3; 97139; 99285; G0378; Z7984; 36415; 36416; 90471; 90670; 96374; A4216; C9113; G0009; J2001; J2270; J2405; J2704; J3010; J3230; J7050

== ENCOUNTER 2018-11-21 09:23 | Outpatient (CLI) | payer MEDICARE ==
[~2018-11-21 09:23] MED LIST: Iopamidol 370 76% 100 ML VIAL ONE
--- NOTE | 2018-11-21 11:41 | CT ---
CT ABDOMEN AND PELVIS WITH AND WITHOUT IV CONTRAST: HISTORY: Benign prostatic hyperplasia. Microscopic hematuria. FINDINGS: The lung bases are clear. Tiny gallstones are seen. A small hiatal hernia is present. There is an 8 m m low-density lesion in the left lobe of the liver, too small to characterize. The spleen and adrenal glands are normal. There is atrophic change in the pancreas. No calculi are seen in the kidneys, ureters or the urinary bladder. No hydroureteronephrosis is seen on either side. Postcontrast images demonstrate no evidence of enhancing renal mass. There is normal contrast excretion into the ureters and urinary bladder. Tiny low-density lesions in the left kidney are likely cysts. The prostate is enlarged. No free air, free fluid or lymphadenopathy seen in the abdomen or pelvis. There are vascular calcific ations without evidence of an is no dilatation of the abdominal aorta. Degenerative changes are present in the spine. There is colonic diverticulosis without diverticulitis. IMPRESSION: 1. Small hiatal hernia 2. Indeterminate 8 mm liver lesion 3. Cholelithiasis 4. No CT evidence of urinary tract calculi or obstruction. 5. Prostatic enlargement 6. Colonic diverticulosis
== END 2018-11-21 09:24 | disposition home or self-care (01) ==
LOC: SCSCT 09:23
PROVIDERS: ATTEND Urology
DX: N40.1 Benign prostatic hyperplasia with lower urinary tract symptoms (principal); R31.29 Other microscopic hematuria; N13.8 Other obstructive and reflux uropathy; K44.9 Diaphragmatic hernia without obstruction or gangrene; K76.9 Liver disease, unspecified; K80.20 Calculus of gallbladder without cholecystitis without obstruction; K57.30 Diverticulosis of large intestine without perforation or abscess without bleeding
CPT/HCPCS: 74178; 82565; Q9967

== ENCOUNTER 2018-12-22 10:24 | Outpatient (CLI) | payer MEDICARE ==
[2018-12-22 12:00] LABS: Bilirubin Negative (Negative); Blood, Urine Trace (Negative); Clarity CLEAR (Clear); Glucose, Urine (Dipstick) Negative (Negative); Leukocyte Negative (Negative); Nitrite Negative (Negative); Protein, Urine (Dipstick) Negative (Neg-Trace); Urobilinogen 0.2 mg/dL (0.2-1.0)
[2018-12-22 12:02] LABS: Bacteria/HPF None Seen HPF (None Seen); Hyaline Casts/LPF 0-3 HYALINE CAST LPF (0-3 Hyaline); Squamous Epithelial 0-3 HPF (0-3); WBC/HPF 0-3 HPF (0-3)
[2018-12-22 12:05] LABS: Hemoglobin 14.7 g/dL (14.0-18.0); Mean Corpuscular HGB CONC 33.5 g/dL (32.0-36.0); Mean Corpuscular Hemoglobin 32.7 pg (27.0-31.0); Mean Corpuscular Volume 97.6 fL (78.0-98.0); Mean Platelet Volume 9.5 fL (7.4-10.4); Platelet Count 90 thou/uL (130-400); Red Blood Cell (RBC) Count 4.48 mill/uL (4.70-6.10); White Blood Cell (WBC) Count 4.6 thou/uL (4.8-10.8)
[2018-12-22 12:06] LABS: PTT 28.6 SEC (22.9-36.1); Prothrombin Time 13.5 SEC (12.0-14.7)
[2018-12-22 12:24] LABS: Anion Gap 13 mmol/L (10-20); BUN (Urea Nitrogen) 18 mg/dL (8.4-25.7); Calc. Creatinine Clearance 0 mL/min (70-130); Calcium 9.3 mg/dL (7.8-10.44); Carbon Dioxide 24 mmol/L (23-31); Chloride 106 mmol/L (98-107); Estimated GFR-MDRD 64; Glucose 124 mg/dL (83-110); Sodium 139 mmol/L (136-145)
--- NOTE | 2018-12-22 21:30 | EKG ---
Test Reason : Blood Pressure : / mmHG Vent. Rate : 061 BPM Atrial Rate : 061 BPM P-R Int : 204 ms QRS Dur : 116 ms QT Int : 434 ms P-R-T Axes : 052 -28 009 degrees QTc Int : 436 ms Normal sinus rhythm Left ventricular hypertrophy with QRS widening Abnormal ECG When compared with ECG of 21-JUN-2016 09:43, No significant change was found Confirmed by Milo NELSON ([id number]) on 12/22/2018 9:29:34 PM Referred By: EMILY Confirmed By:Milo NELSON
== END 2018-12-22 10:25 | disposition home or self-care (01) ==
LOC: LABBT 10:24
PROVIDERS: ATTEND Urology
DX: Z01.818 Encounter for other preprocedural examination (principal); N40.0 Benign prostatic hyperplasia without lower urinary tract symptoms; N35.919 Unspecified urethral stricture, male, unspecified site
CPT/HCPCS: 80048; 81001; 85027; 85610; 85730; 87086; 93005; 93010

== ENCOUNTER 2018-12-27 07:35 | Day surgery (SDC) | payer MEDICARE ==
[2018-12-22 10:56] VITALS: BMI 28.6
[2018-12-27 08:56] LABS: #Eosinphils 0.3 thou/uL (0.0-0.7); #Lymphocytes 1.7 thou/uL (1.20-3.40); #Monocytes 0.3 thou/uL (0.11-0.59); #Neutrophils 2.7 thou/uL (1.40-6.50); %Basophils 0.7 % (0.0-1.0); %Eosinophils 5.5 % (0.0-10.0); %Lymphocytes 34.1 % (21.0-51.0); %Monocytes 6.3 % (0.0-10.0); %Neutrophils 53.4 % (42.0-75.0); Hemoglobin 14.2 g/dL (14.0-18.0); Mean Corpuscular HGB CONC 32.2 g/dL (32.0-36.0); Mean Corpuscular Hemoglobin 31.6 pg (27.0-31.0); Mean Corpuscular Volume 98.2 fL (78.0-98.0); Mean Platelet Volume 9.7 fL (7.4-10.4); Platelet Count 88 thou/uL (130-400); RBC Distribution Width 11.8 % (11.5-14.5); Red Blood Cell (RBC) Count 4.47 mill/uL (4.70-6.10); White Blood Cell (WBC) Count 5.1 thou/uL (4.8-10.8)
[2018-12-27] MEDS ORDERED: Levofloxacin 500 mg/D5W 100 ml Premix Bag ONE (09:10)
[2018-12-27] MEDS ORDERED: Fentanyl 100 MCG/2 ML VIAL ONE (09:43)
[2018-12-27] MEDS ORDERED: Phenazopyridine HCl 97.5 MG TABLET ONE (11:22)
--- NOTE | 2018-12-27 11:48 | OP ---
DATE OF PROCEDURE: 12/27/2018 PREOPERATIVE DIAGNOSES: An 83-year-old male with history of benign prostatic hypertrophy, prior history of urinary retention of 250 mL. POSTOPERATIVE DIAGNOSES: An 83-year-old male with history of benign prostatic hypertrophy, prior history of urinary retention of 250 mL. PROCEDURES PERFORMED: Cystoscopy, UroLift implant x6. ANESTHESIA: LMA. COMPLICATIONS: None apparent. DISPOSITION: To recovery room in stable condition. INDICATIONS FOR PROCEDURE AND HISTORY: Mr. Sidhu is a pleasant 83-year-old male with history of diabetes, has history of postop urinary retention, status post rotator cuff. There is a history of difficult Warren catheter placement 16-Malian coude , 250 mL of postvoid residual obtained. He has been treated with medical treatment with dual medical therapy. He desired to proceed with surgical intervention, and we discussed options of UroLift as his volume demonstrated 35 g with no evidence of intravesical median lobe. Risks, complications, and indications reviewed including chronic pain, migration of implant, incrustation, chronic pelvic pain, injury to adjacent organ, stricture formation, irritative voiding symptoms. Questions answered and encouraged, and he desired to proceed. DESCRIPTION OF PROCEDURE: After an informed consent was signed, the patient was taken to the operating room, placed in a dorsal lithotomy position with the genital area prepped and draped in the usual surgical sterile fashion. Broad-spectrum antibiotics were provided. A 21-Malian cystoscope was utilized for cystoscopy. We staged the bladder with a 30- and a 70-degree lens. Although his local cystoscopy previously demonstrated a subtle penile bulbar stricture about 14- to 16-Malian , I did not see any obvious stricture that was concerning that needed to be treated at this time. The scope was passed without difficulty. Bilobar moderately obstructing prostatic hypertrophy was noted with a high median bar. At this time, we did transition to a UroLift device. With our implant device located approximately 1.5 to 2 cm distal to the bladder neck, we deployed our first implant laterally at a 20-degree angle laterally. We deployed our first implant demonstrating good opening of our bladder neck. This was repeated with a total of 6 implants delivered. At the end of the procedure, bladder neck was opened with resolution of his obstructing lateral lobes. We subsequently transitioned to a 30- and a 70-degree lens cystoscope demonstrating no evidence of implant material within the bladder neck with the bladder. There was a small oozing noted at the mid prostate venous in nature using an endoscopic Bugbee. We did cauterize this region with improvement and resolution. A 16-Malian Warren catheter was passed without significant issues and 10 mL insufflated. He is discharged with ciprofloxacin for course of 3 days and will see me tomorrow for a voiding trial, if urine output is relatively clear. He is to stop his aspirin. Job ID: [id number] MTDD
[2018-12-27] MEDS ORDERED: Dexamethasone 20 MG/5 ML VIAL ONE (15:50)
[2018-12-27] MEDS ORDERED: Lidocaine 1% PF 5 ML VIAL ONE (15:50)
[2018-12-27] MEDS ORDERED: Ondansetron PF 4 MG/2 ML Vial ONE (15:50)
[2018-12-27] MEDS ORDERED: PROPOFOL 200 MG/20 ML VIAL ONE (15:50)
== END 2018-12-27 14:06 | disposition home or self-care (01) ==
LOC: SDC 07:35
PROVIDERS: ATTEND Urology
PROC: 0T7D8DZ Dilation of Urethra with Intraluminal Device, Via Natural or Artificial Opening Endoscopic (ICD-10-PCS; principal; 2018-12-27)
DX: N40.1 Benign prostatic hyperplasia with lower urinary tract symptoms (principal); R31.29 Other microscopic hematuria; R39.14 Feeling of incomplete bladder emptying; N37 Urethral disorders in diseases classified elsewhere; I10 Essential (primary) hypertension; E11.9 Type 2 diabetes mellitus without complications; I25.10 Atherosclerotic heart disease of native coronary artery without angina pectoris; Z79.4 Long term (current) use of insulin; Z79.82 Long term (current) use of aspirin; Z79.899 Other long term (current) drug therapy; Z87.891 Personal history of nicotine dependence; Z95.1 Presence of aortocoronary bypass graft
CPT/HCPCS: 85025; C1758; C1889; C9740; 36415; J1100; J1956; J2001; J2405; J2704; J3010

== ENCOUNTER 2019-06-18 09:42 | Outpatient (CLI) | payer MEDICARE ==
[2019-06-18 11:15] LABS: #Eosinphils 0.2 thou/uL (0.0-0.7); #Lymphocytes 1.3 thou/uL (1.20-3.40); #Monocytes 0.3 thou/uL (0.11-0.59); #Neutrophils 2.7 thou/uL (1.40-6.50); %Basophils 0.8 % (0.0-1.0); %Eosinophils 4.2 % (0.0-10.0); %Lymphocytes 28.4 % (21.0-51.0); %Monocytes 5.6 % (0.0-10.0); Hemoglobin 14.2 g/dL (14.0-18.0); Mean Corpuscular HGB CONC 33.9 g/dL (32.0-36.0); Mean Corpuscular Hemoglobin 32.8 pg (27.0-31.0); Mean Corpuscular Volume 96.7 fL (78.0-98.0); Mean Platelet Volume 9.9 fL (7.4-10.4); Platelet Count 85 thou/uL (130-400); RBC Distribution Width 11.6 % (11.5-14.5); Red Blood Cell (RBC) Count 4.34 mill/uL (4.70-6.10); White Blood Cell (WBC) Count 4.4 thou/uL (4.8-10.8)
[2019-06-18 11:27] LABS: ALT (SGPT) 18 U/L (8-55); AST (SGOT) 22 U/L (5-34); Albumin 3.8 g/dL (3.4-4.8); Alkaline Phosphatase 105 U/L (40-110); Anion Gap 13 mmol/L (10-20); BUN (Urea Nitrogen) 12 mg/dL (8.4-25.7); Bilirubin, Direct 0.2 mg/dL (0.1-0.3); Bilirubin, Total 0.6 mg/dL (0.2-1.2); Calc. Creatinine Clearance 0 mL/min (70-130); Calcium 8.8 mg/dL (7.8-10.44); Carbon Dioxide 24 mmol/L (23-31); Chloride 107 mmol/L (98-107); Estimated GFR-MDRD 55; Globulin 2.6 g/dL (2.4-3.5); Glucose 210 mg/dL (83-110); Potassium 4.6 mmol/L (3.5-5.1); Protein, Total 6.4 g/dL (5.8-8.1); Sodium 139 mmol/L (136-145)
== END 2019-06-18 09:43 | disposition home or self-care (01) ==
LOC: LABBT 09:42
PROVIDERS: ATTEND Surgery
DX: Z01.812 Encounter for preprocedural laboratory examination (principal); K80.20 Calculus of gallbladder without cholecystitis without obstruction
CPT/HCPCS: 80053; 80076; 85025

== ENCOUNTER 2019-06-20 07:05 | Day surgery (SDC) | payer MEDICARE ==
[2019-06-18 10:05] VITALS: BMI 28.3
[2019-06-20] MEDS ORDERED: ceFOXitin 2 GM/50 ML Duplex BAG ONE (08:16)
[2019-06-20] MEDS ORDERED: Fentanyl 100 MCG/2 ML VIAL ONE (08:42)
[2019-06-20] MEDS ORDERED: Bupivacaine 0.25% HCL 30 ML VIAL ONE (08:44)
[2019-06-20] MEDS ORDERED: Lidocaine 1% w/Epinephrine 1:100K 20 ML VIAL ONE (08:44)
[2019-06-20] MEDS ORDERED: Ketorolac Tromethamine 30 MG/ML VIAL ONE (10:28)
[2019-06-20] MEDS ORDERED: Glycopyrrolate 0.2 MG/ML 5 ML SYRINGE ONE (10:28)
[2019-06-20] MEDS ORDERED: Lidocaine 1% PF 5 ML VIAL ONE (10:28)
[2019-06-20] MEDS ORDERED: Ondansetron PF 4 MG/2 ML Vial ONE (10:28)
[2019-06-20] MEDS ORDERED: PROPOFOL 200 MG/20 ML VIAL ONE (10:28)
[2019-06-20] MEDS ORDERED: Rocuronium Bromide 10 MG/ML (10ML VIAL) ONE (10:28)
--- NOTE | 2019-06-20 13:44 | OP ---
DATE OF PROCEDURE: 06/20/2019 PREOPERATIVE DIAGNOSIS: Symptomatic cholelithiasis. PROCEDURE PERFORMED: Laparoscopic cholecystectomy. INDICATIONS: This is an 84-year-old male, with episodic right upper quadrant pain radiating to back. Ultrasound showed cholelithiasis. FINDINGS: There were some adhesions to the gallbladder. There was a small cystic duct in caliber. DESCRIPTION OF PROCEDURE: After informed consent was obtained, the patient was taken to the operating room and given general endotracheal anesthesia. He was placed in supine position. His abdomen was prepped and draped in usual fashion. Local anesthesia was infiltrated subcutaneously and deep. A subumbilical incision was performed. Subcu divided sharply. The fascia was grasped and 2 stay sutures of 0 Vicryl placed in each side of midline. Midline was incised. Digital palpation revealed no local adhesions. A blunt 12-mm trocar was inserted. Pneumoperitoneum was created to a pressure of 15 mmHg. A 0-degree laparoscope was inserted under direct vision. Three 5-mm ports were placed subcostally. Gallbladder was grasped and advanced superiorly. Adhesions lysed sharply. The peritoneum opened to expose the cystic duct artery in critical view. The duct and artery were triply ligated with hemoclips and divided. The gallbladder was removed from its fossa utilizing electrocautery, removed from the abdomen through the umbilical port. Hemostasis was assured. Trocars and retractors were removed. The fascia was closed with interrupted 0 Vicryl suture. The skin closed with interrupted 4-0 Rapide. Dermabond applied. The patient tolerated the procedure well, transferred to Recovery in good condition. Sponge and needle count verified correct x2. Job ID: [id number]
== END 2019-06-20 12:20 | disposition home or self-care (01) ==
LOC: SDC 07:05
PROVIDERS: ATTEND Surgery
PROC: 0FT44ZZ Resection of Gallbladder, Percutaneous Endoscopic Approach (ICD-10-PCS; principal; 2019-06-20)
DX: K80.10 Calculus of gallbladder with chronic cholecystitis without obstruction (principal); K82.8 Other specified diseases of gallbladder; E11.9 Type 2 diabetes mellitus without complications; I10 Essential (primary) hypertension; I25.10 Atherosclerotic heart disease of native coronary artery without angina pectoris; N40.0 Benign prostatic hyperplasia without lower urinary tract symptoms; Z87.891 Personal history of nicotine dependence; Z79.84 Long term (current) use of oral hypoglycemic drugs; Z79.899 Other long term (current) drug therapy; Z95.1 Presence of aortocoronary bypass graft; Z90.2 Acquired absence of lung [part of]
CPT/HCPCS: 88304; J0694; J1885; J2001; J2405; J2704; J3010; S0020

== ENCOUNTER 2025-04-02 11:23 | Outpatient (CLI) | payer MEDICARE | END 2025-04-02 11:24 | disposition home or self-care (01) | LOC: SCSRAD 11:23 | PROVIDERS: ATTEND Family Medicine | DX: M25.552 Pain in left hip (principal) ==